=== PATIENT | male | born 1985 | race Hispanic/Latino ===

== ENCOUNTER 2017-09-20 20:57 | Emergency (ER) | payer BC ==
[2017-09-20] MEDS: Sodium Chloride 0.9% 1,000 ML IV ONE ×2 (21:30→22:39)
[2017-09-20 21:43] VITALS: O2SAT 98
[2017-09-20] MEDS ORDERED: Albuterol-Ipratrop 3 mg / 0.5 (3 ml) UD ONE ×2 (21:50→22:20)
[2017-09-20] MEDS ORDERED: Sodium Chloride 0.9% 1,000 ML ONE (21:50)
--- NOTE | 2017-09-20 21:59 | C.PDOC ---
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 Patient reports is was his asthma got worse, he states he did not run out of his medications and uses his inhaler. Patient reports quit smoking 3 weeks ago. Patient denies fever, chills, nausea, vomit, diarrhea, abdominal pain , recent travel, sick contacts. Chief Complaint (Nursing): Chest Pain History Per: Patient History/Exam Limitations: no limitations Onset/Duration Of Symptoms: Hrs Current Symptoms Are (Timing): Still Present Severity: Moderate Pain Scale Rating Of: 4 Quality: Sharp, "Pain" Associated Symptoms: Dyspnea Modifying Factors: None Exacerbating Factors: None Alleviating Factors: None Recent travel outside of the [place]: No Additional History Per: Patient Past Medical History Reviewed: Historical Data, Nursing Documentation, Vital Signs Vital Signs: Last Vital Signs Temp 99 F 09/21/17 02:11 Pulse 88 09/21/17 02:11 Resp 16 09/21/17 02:11 BP 138/74 09/21/17 02:11 Pulse Ox 98 09/21/17 02:11 - Medical History PMH: Asthma Denies: Benign Prostatic Hyperplasia, Chronic Kidney Disease Surgical History: No Surg Hx Family History: States: Unknown Family Hx - Social History Hx Alcohol Use: No Hx Substance Use: No - Immunization History Hx Tetanus Toxoid Vaccination: No Hx Influenza Vaccination: No Hx Pneumococcal Vaccination: No Review Of Systems Constitutional: Negative for: Fever, Chills ENT: Negative for: Ear Pain, Nose Congestion Cardiovascular: Positive for: Chest Pain. Negative for: Palpitations, Orthopnea , Edema, Light Headedness Respiratory: Positive for: Cough, Shortness of Breath Gastrointestinal: Negative for: Nausea, Vomiting, Abdominal Pain, Constipation, Melena Genitourinary: Negative for: Dysuria, Hematuria Musculoskeletal: Negative for: Back Pain Skin: Negative for: Rash Neurological: Negative for: Weakness, Numbness Psych: Negative for: Anxiety Physical Exam - Physical Exam Appears: Non-toxic, In Acute Distress Skin: Normal Color, Warm, Dry Head: Atraumatic, Normacephalic Eye(s): bilateral: Normal Inspection Ear(s): Bilateral: Normal Nose: No Discharge, No Deformity Oral Mucosa: Moist Tongue: Normal Appearing Lips: Normal Appearing Teeth: Normal Dentition Neck: Normal ROM, Supple Chest: Symmetrical, Tenderness (reproducible anterior chets wall pain) Cardiovascular: Rhythm Regular, No Murmur, Other (chest wall tenderness) Respiratory: Normal Breath Sounds, No Rales, No Rhonchi, No Wheezing Gastrointestinal/Abdominal: Normal Exam Extremity: Normal ROM, No Pedal Edema, No Calf Tenderness, No Deformity, No Swelling Neurological/Psych: Oriented x3, Normal Speech, Normal Cognition Gait: Steady ED Course And Treatment - Laboratory Results Result Diagrams: 09/20/17 22:43 09/20/17 22:19 ECG: Interpreted By Me, Viewed By Me ECG Rhythm: Sinus Bradycardia Interpretation Of ECG: NSR 86, AR 166, QRS 96, Qt 360, Qtc 460, non ischemic changes Rate From EC O2 Sat by Pulse Oximetry: 98 (On RA) Pulse Ox Interpretation: Normal - Radiology CXR: Interpreted by Me, Viewed By Me CXR Interpretation: Yes: Infiltrates (fluffy B/L), Other (Atipical pneumonia, no focal consolidation, no effusion). No: Cardiomegaly, Pnemothorax Medical Decision Making Medical Decision Making: Plan: * CXR * Atipical pneumonia B/L fluffy infiltrates no focal consolidations, no effusion, no PMX, no cardiomegaly * Labs * WBC 21.2 * D Dimer elevated * EKG * NSR 86, AR 166, QRS 96, Qt 360, Qtc 460, non ischemic changes * Duoneb 6 ml INH * Nebulizer treatment * Peak flow * Influenza A B CT angio chest was ordered but patient refused the test, patient was counseled at length about the dangers of leaving without the test. Patient still refused the CT and wished to be d/c home. Disposition Counseled Patient/Family Regarding: Diagnosis - Disposition Referrals: [facility] at [facility] [place] [Outside] [facility] at [facility] [Outside] [facility] [place] [Outside] Disposition: HOME/ ROUTINE Disposition Time: 01:47 Condition: FAIR Additional Instructions: return to ed if symptoms persist or worsen Prescriptions: Albuterol HFA [Ventolin HFA 90 mcg/actuation (8 g)] 2 puff IH [id number] 7 Days #1 unit Amoxicillin/Clavulanate [Augmentin 875 MG-125 MG] 1 tab PO BID 7 Days #14 tab Azithromycin 250 mg PO DAILY 4 Days #4 tablet Instructions: Asthma (ED), Bacterial Pneumonia (ED), Wheezing (ED), How Your Lungs Work (ED) Forms: [facility] (Belarusian), Work Excuse - Clinical Impression Clinical Impression: Chest pain, Asthma, Pneumonia - Scribe Statement The provider has reviewed the documentation as recorded by the Scribe Karson Kim All medical record entries made by the Scribe were at my direction and personally dictated by me. I have reviewed the chart and agree that the record accurately reflects my personal performance of the history, physical exam, medical decision making, and the department course for this patient. I have also personally directed, reviewed, and agree with the discharge instructions and disposition.
[2017-09-20] MEDS: Albuterol-Ipratrop 3 mg / 0.5 (3 ml) UD INH STA (22:23)
[2017-09-20 22:50] LABS: BASO # 0.1 K/uL (0.0-0.2); BASO % 0.5 % (0.0-2.0); HEMOGLOBIN 15.1 g/dL (12.0-18.0); LYMPH # 2.8 K/uL (1.0-4.3); LYMPH % 13.4 % (20.0-40.0); MEAN CELL VOLUME 88.1 fL (80.0-94.0); MEAN CORPUSCULAR HEMOGLOBIN 30.1 pg (27.0-31.0); MEAN CORPUSCULAR HGB CONC 34.2 g/dL (33.0-37.0); MONO # 1.6 K/uL (0.0-0.8); MONO % 7.5 % (0.0-10.0); NEUT # 16.7 K/uL (1.8-7.0); NEUT % 78.6 % (50.0-75.0); WHITE BLOOD COUNT 21.2 K/uL (4.8-10.8)
[2017-09-20 22:59] LABS: ALB/GLOB RATIO 1.1 (1.0-2.1); ALBUMIN 4.3 g/dL (3.5-5.0); CALCIUM 8.6 mg/dl (8.6-10.4); GFR AFRICAN-AMERICAN > 60; GFR NON-AFRICAN AMERICAN > 60
[2017-09-20 23:03] LABS: ALT/SGPT 41 U/L (21-72); AST/SGOT 41 U/L (17-59); BLOOD UREA NITROGEN 11 mg/dL (9-20); MAGNESIUM 1.5 mg/dL (1.6-2.3)
[2017-09-21] MEDS: Azithromycin 500 MG in Sodium Chloride 0.9% 250 ML IVPB STA (01:00)
[2017-09-21 02:12] VITALS: BP 138/74; PULSE 88; RESP 16; TEMP 99
--- NOTE | 2017-09-21 08:02 | RAD ---
HISTORY: SOB COMPARISON: None TECHNIQUE: Chest PA and lateral FINDINGS: LUNGS: No focal consolidation is seen. PLEURA: No pleural effusion is identified. CARDIOVASCULAR: Heart size is within normal limits. OSSEOUS STRUCTURES: No acute fracture identified VISUALIZED UPPER ABDOMEN: Unremarkable. OTHER FINDINGS: None. IMPRESSION: No acute cardiopulmonary process seen.
--- NOTE | 2017-09-21 14:01 | CARD ---
APPROVED REPORT EKG Measurement Heart [id number] <Conclusion> Normal sinus rhythm Normal ECG
== END 2017-09-21 02:13 | disposition home or self-care (01) ==
LOC: C.ER 20:57
DX: J18.9 Pneumonia, unspecified organism (principal); J45.909 Unspecified asthma, uncomplicated; R07.9 Chest pain, unspecified; Z87.891 Personal history of nicotine dependence
CPT/HCPCS: 71046; 80053; 83735; 84484; 85025; 85378; 87804; 93005; 96361; 96365; 96367; 96375; 99284; J0456; J0696; J2405; J7040; J7050